=== PATIENT | male | born 2000 ===

== ENCOUNTER 2020-02-05 10:15 | Outpatient (RCR) | payer OTHER, SELFPAY ==
--- NOTE | 2020-01-22 12:40 | PC.ADMIT ---
Patient is a 19 year old male who started the program today d/t to an increase in severe depression with passive SI and reports an increase in anxiety with panic attacks after breaking up with his girlfriend about 2 weeks ago. Patient was referred to [facility] by [employer] crisis. He is attending PHP because, When I have lows they are really bad, I'm in pain. I broke up with my girlfriend 2 weeks ago and this amplified issues, anxiety, insecurities, and depression . Patient is oriented x3. Calm and cooperative. Reports passive SI but denied any plans or intent to harm or kill himself. Gave verbal permission to email him a copy of his safety plan. When asked who could he talk to if feeling unsafe patient stated his parents who are supportive whom he lives with and crisis. Medication reconciled with patient's pharmacy and patient. Last filled Methylphenidate in June 2019. Taking Lexapro as prescribed.
--- NOTE | 2020-01-22 15:50 | PC.NURSE ---
I called and left a message with Geno Drake, The clients therapist, to inform him that Karthik started the program today.
--- NOTE | 2020-01-22 16:37 | HO.PS.ADMBH ---
HPI Chief Complaint: depression Sources of Information: patient interviewed and chart reviewed HPI Narrative: Patient is a 19 year old male who presents to [facility] to address worsening depressive sx and suicidal ideation. Patient reports that he has been experiencing low self worth, racing thoughts, inconsistent sleep patterns (some days having difficulty falling asleep other days sleeping until 1pm), poor appetite--though this is not new. He identifies recent breakup with his gf as a precipitant. He reports that his lows can be pretty bad and this is how he came to be admitted to [facility] following crisis evaluation and recommendation. He has been in care with psychiatric provider at [facility] and was started on Lexapro about 2 months ago and most recently dose was increased to 15mg. He finds that anxiety has improved since starting this. Previous medication trials include Seroquel which was started by provider when he lived in [place], because there was concern he had Bipolar disorder. Patient was noted to have what appeared to be involuntary head nodding during visit. He reports this started about 2 years ago and states it is something he can control, but is more of a compulsion and feels he needs to do it. He denies any other compulsions, but does note that he sometimes feels if he scrolls his mouse down, he has to scroll it up as well. Denies any rituals such as counting or other behaviors Past Psychiatric History: denies inpatient admissions outpatient providers in place [facility] Medical History (Updated 01/22/20 @ 16:59 by Desirae Steiner CNP) Atrial septal defect Family History: Patient reports family history of bipolar disorder, including his mother Social History: Lives with his parents Supportive relationship Substance History: Denies Meds/Allergies Allergies Allergies Allergy/AdvReac Type Severity Reaction Status Date / Time No Known Allergies Allergy Verified 01/22/20 11:40 Mental Status Exam Mental Status Exam Patient Appearance: Well Grooomed Patient Orientation: Person, Place, Time and Situation Level of Consciousness: Awake, Appropriate and Alert Patient Behavior: Appropriate Mood Description: Calm and Appropriate Affect Description: Calm and Appropriate Ability to Follow Directions: Excellent Speech Pattern: Clear Hallucinations: None Thought Process: Rumination and Goal Oriented Thought Content: positive for Goal Oriented Depressive Symptoms: Increased Anxiety, Difficulty Sleeping, Sleeping More Than Usual, Feelings of Worthlessness and Thoughts of /Suicide Judgement: Good Assessment & Plan Assessment & Plan (1) Major depressive disorder, recurrent episode: Status: Acute Code(s): F33.9 - Major depressive disorder, recurrent, unspecified Assessment and Plan: patient denies active suicidal intent--advised and encouraged to present to ED if thoughts increased or worsened Discussed adding [place] to address suicidal ideation Wishes to work with outpatient provider regarding medication changes--has appt next week with her follow up PRN Certification I certify that partial hospital treatment is medically necessary due to the symptoms and problems resulting from the patient's mental illness and the failure to treat the patient at the partial hospital level of care would likely result in the patient requiring inpatient psychiatric care which could not be prevented at a less intensive level of care. Telehealth Telehealth Location of provider rendering services: practice address Location of patient: address on file Patient Identification confirmed using: Name, : Yes Telehealth method: video Patient verbally consented to treatment: Yes Patient verbally consented to billing insurance company: Yes Time spent with patient (mins): 40
--- NOTE | 2020-01-23 14:38 | PC.NURSE ---
Case opened in treatment team. I phoned Karthik and we reviewed his treatment plan including schedule and tentative dc date ( 02-11-2020).
--- NOTE | 2020-01-28 14:06 | HO.PHPPROGNO ---
Subjective Subjective Date of Service: 01/28/20 Reason For Visit: depression Interim History: Patient reporting an overall positive week. He finds that he has been able to enjoy things more when with his friends, also finds comfort in PHP knowing that others are dealing with similar issues. Has appointment with outpatient provider 01/28 Medication Compliance: Yes Side effects from medications: No Attending Groups: Yes Review of Systems Constitutional: Reports as per HPI and Reports no additional constitutional complaints Mental Status Exam Mental Status Exam Patient Appearance: Well Grooomed Patient Orientation: Person, Place, Time and Situation Level of Consciousness: Awake, Appropriate and Alert Patient Behavior: Appropriate Mood Description: Calm Affect Description: Calm Ability to Follow Directions: Excellent Speech Pattern: Clear Hallucinations: None Delusions: Not Present Thought Process: Goal Oriented Thought Content: positive for Goal Oriented Judgement: Good Assessment & Plan Assessment & Plan (1) Major depressive disorder, recurrent episode: Status: Acute Code(s): F33.9 - Major depressive disorder, recurrent, unspecified Assessment and Plan: No changes at this time Certification I certify that partial hospital treatment is medically necessary due to the symptoms and problems resulting from the patient's mental illness and the failure to treat the patient at the partial hospital level of care would likely result in the patient requiring inpatient psychiatric care which could not be prevented at a less intensive level of care. Greater than 50% of the session was spent on counseling and/or coordination of care Discharge Plan Discharge Attending provider: Florin Rod Medications: No Action escitalopram oxalate 10 mg Tablet 15 mg PO DAILY RF: 0 Telehealth Telehealth Location of provider rendering services: practice address Location of patient: address on file Patient Identification confirmed using: Name, : Yes Telehealth method: video Patient verbally consented to treatment: Yes Patient verbally consented to billing insurance company: Yes Time spent with patient (mins): 10
--- NOTE | 2020-02-04 15:17 | PC.NURSE ---
I spoke with the client about his progress in PHP and dischrge plans. He states that he feels much improved nad would like to be discharged tomorrow. We explored [facility] on line support groups and I made a referral for him at [facility] for the DBT group. They will call him within seven days. I spoke with katya at [facility]. Mauro runs the group and will call Martínez directly.
--- NOTE | 2020-02-05 13:42 | P.PNPSP_ITS ---
Subjective Subjective Date of Service: 02/05/20 Reason For Visit: depression Interim History: Last day of [facility] reports he found it helpful Feels medication is finally kicking in . Has follow up appt with provider next week. Reports depressive sx still present, though much improved from time of admission Medication Compliance: Yes Side effects from medications: No Attending Groups: Yes Review of Systems Constitutional: Reports as per HPI and Reports no additional constitutional complaints Mental Status Exam Mental Status Exam Patient Appearance: Well Grooomed and Appropriate Level of Consciousness: Awake, Appropriate and Alert Patient Behavior: Appropriate Mood Description: Calm and Appropriate Affect Description: Calm and Appropriate Speech Pattern: Clear Hallucinations: None Delusions: Not Present Thought Process: Goal Oriented Thought Content: positive for Goal Oriented Judgement: Good Assessment & Plan Assessment & Plan (1) Major depressive disorder, recurrent episode: Status: Acute Code(s): F33.9 - Major depressive disorder, recurrent, unspecified Assessment and Plan: follow up appts with outpatient provider already in place Certification I certify that partial hospital treatment is medically necessary due to the symptoms and problems resulting from the patient's mental illness and the failure to treat the patient at the partial hospital level of care would likely result in the patient requiring inpatient psychiatric care which could not be prevented at a less intensive level of care. Greater than 50% of the session was spent on counseling and/or coordination of care Discharge Plan Discharge Attending provider: Florin Rod Medications: No Action escitalopram oxalate 10 mg Tablet 15 mg PO DAILY RF: 0 Telehealth Telehealth Location of provider rendering services: practice address Location of patient: address on file Patient Identification confirmed using: Name, : Yes Telehealth method: video Patient verbally consented to treatment: Yes Patient verbally consented to billing insurance company: Yes Time spent with patient (mins): 10
== END 2020-02-05 23:55 | disposition home or self-care (01) ==
LOC: HO.PHPA 10:15
PROVIDERS: Visit Provider Psychiatry & Neurology Psychiatry
DX: F33.9 Major depressive disorder, recurrent, unspecified (principal)
CPT/HCPCS: 90791; 90792; 90853; 99212